=== PATIENT | female | born 1950 | race Caucasian/White ===

== ENCOUNTER → 2017-07-22 | Outpatient (CLI) | payer MEDICARE, OTHER ==
[~2017-07-22] MED LIST: AMITRIPTYLINE H25 M2 PO; ASPIR 8181 MG PO; CENTRUM SILVER1 EAC4 PO; COLACE100 MG PO; CYMBALTA60 MG PO; ENBREL50 MG/1 M1 SQ; FLEXERIL PO; HYDROCODONE-APA1 TA1 PO; LANTUS100 UNIT/M SUBQ; LOVASTATIN 20 M20 MG PO; MELATONIN3 MG PO; METFORMIN HCL500 MG PO; NEXIUM40 MG PO; NORVASC5 MG PO; PERCOCET 7.5-31 EACH PO; TRAMADOL 50 MG50 MG PO; VICTOZA0.6 MG/0.1 SUBQ; WELCHOL 625 MG625 M1 PO; XANAX XR0.5 MG PO
== END ==
LOC: M.ULTRA 10:15
DX: Z12.31 Encounter for screening mammogram for malignant neoplasm of breast (principal); K76.0 Fatty (change of) liver, not elsewhere classified; R10.11 Right upper quadrant pain; R10.12 Left upper quadrant pain

== ENCOUNTER → 2017-09-21 | Outpatient (CLI) | payer MEDICARE, OTHER | LOC: M.RAD 16:14 | DX: M16.0 Bilateral primary osteoarthritis of hip (principal); R07.81 Pleurodynia; Z87.891 Personal history of nicotine dependence ==